=== PATIENT | female | born 2000 | race Caucasian/White ===

== ENCOUNTER 2019-03-04 18:05 | Emergency (ER) | payer OTHER, BC ==
[~2019-03-04] VITALS: Ht 152.4 cm; Wt 51.7 kg
[~2019-03-04 18:05] MED LIST: CEFD300C37 PO; DOCU-131 PO; ETON1VAG VG; IBUP-1222 PO; IRON1TAB60 PO; METR500T PO; NITR100C56 PO; NORG1TAB6 PO; ONDA4TAB13 SL; OXYC-302 PO; birth control
--- NOTE | 2019-03-04 18:30 | NUR ---
PT PRESENTING FOR RIGHT FLANK PAIN AND PAINFUL URINATION, RECENTLY DX WITH UTI ON ABX BUT FEELS SHE IS GETTING WORSE. UA COLLECTED AND SENT TO LAB. FAMILY AT BEDSIDE. CALL LIGHT WITHIN REACH. AWAITING FURTHER ORDERS AT THIS TIME
[2019-03-04] MEDS ORDERED: IBUPROFEN 600 MG TABLET ONE (18:36)
[2019-03-04] MEDS ORDERED: PROMETHAZINE 25 MG/ML, 1ML ONE (18:36)
[2019-03-04] MEDS ORDERED: ONDANSETRON ODT 4 MG ONE (18:36)
[2019-03-04] MEDS ORDERED: HYDROcodone/APAP 5/325 TABLET ONE (18:36)
[2019-03-04 18:50] LABS: BASOPHILS # (AUTO) 0.01 x10^3/uL (0-0.1); BASOPHILS % (AUTO) 0 % (0-1); EOSINOPHILS # (AUTO) 0.08 x10^3/uL (0-0.4); EOSINOPHILS % (AUTO) 1 % (1-7); LYMPHOCYTES # (AUTO) 0.58 x10^3/uL (1-3.4); LYMPHOCYTES % (AUTO) 5 % (22-44); MD NO; MEAN CORPUSCULAR HEMOGLOBIN 34.5 pg (27.0-34.8); MEAN CORPUSCULAR HGB CONC 34.6 g/dL (32.4-35.8); MEAN CORPUSCULAR VOLUME 99.8 fL (80-100); MEAN PLATELET VOLUME 9.9 fL (7.4-10.4); MONOCYTES # (AUTO) 0.22 x10^3/uL (0.2-0.8); MONOCYTES % (AUTO) 2 % (2-9); NEUTROPHILS # (AUTO) 11.59 x10^3/uL (1.8-6.8); NEUTROPHILS % (AUTO) 93 % (42-75); PLATELET COUNT 154 x10^3/uL (130-400); RED BLOOD COUNT 4.59 x10^6/uL (3.82-5.3); RED CELL DISTRIBUTION WIDTH 13.6 % (9.6-15.2)
[2019-03-04 18:57] LABS: MICROSCOPIC AUTO
[2019-03-04 18:58] LABS: CULTURE INDICATED? YES
[2019-03-04] MEDS ORDERED: ONDANSETRON ODT 4 MG PO ONE (19:00)
[2019-03-04] MEDS ORDERED: HYDROcodone/APAP 5/325 TABLET PO ONE (19:00)
[2019-03-04] MEDS ORDERED: PROMETHAZINE 25 MG/ML, 1ML IM ONE (19:00)
[2019-03-04] MEDS ORDERED: IBUPROFEN 600 MG TABLET PO ONE (19:00)
[2019-03-04 19:01] LABS: ALANINE AMINOTRANSFERASE 25 U/L (12-78); ALBUMIN 4.1 g/dL (3.4-5.0); ANION GAP 6 mmol/L (5-15); CALCIUM 8.8 mg/dL (8.5-10.1); CHLORIDE 110 mmol/L (98-107); CREATININE 0.83 mg/dL (0.55-1.02)
[2019-03-04 19:06] LABS: ALKALINE PHOSPHATASE 85 U/L (45-117); BILIRUBIN,TOTAL 0.6 mg/dL (0.2-1.0); TOTAL PROTEIN 7.1 g/dL (6.4-8.2)
[2019-03-04 19:25] VITALS: BP 99/61
--- NOTE | 2019-03-04 19:35 | NUR ---
MD TO BEDSIDE TO RECHECK PT AND UPDATE PT AND FAMILY ON POC. PT TO BE DCd
== END 2019-03-04 19:54 | disposition home or self-care (01) ==
LOC: ED 19:00
DX: N30.00 Acute cystitis without hematuria (principal); Z88.8 Allergy status to other drugs, medicaments and biological substances
CPT/HCPCS: 36415; 80053; 81001; 83690; 84703; 85025; 87086; 96372; 99284; J2550; Q0162

== ENCOUNTER 2019-03-16 21:45 | Emergency (ER) | payer OTHER, BC ==
[~2019-03-16] VITALS: Ht 152.4 cm; Wt 52.9 kg
[2019-03-16 21:55] VITALS: BP 96/56
[2019-03-16 22:28] LABS: BASOPHILS # (AUTO) 0.02 x10^3/uL (0-0.1); BASOPHILS % (AUTO) 0 % (0-1); EOSINOPHILS # (AUTO) 0.17 x10^3/uL (0-0.4); EOSINOPHILS % (AUTO) 2 % (1-7); LYMPHOCYTES # (AUTO) 2.98 x10^3/uL (1-3.4); LYMPHOCYTES % (AUTO) 39 % (22-44); MD NO; MEAN CORPUSCULAR HEMOGLOBIN 34.3 pg (27.0-34.8); MEAN CORPUSCULAR HGB CONC 34.5 g/dL (32.4-35.8); MEAN CORPUSCULAR VOLUME 99.4 fL (80-100); MEAN PLATELET VOLUME 9.1 fL (7.4-10.4); MONOCYTES # (AUTO) 0.43 x10^3/uL (0.2-0.8); MONOCYTES % (AUTO) 6 % (2-9); NEUTROPHILS # (AUTO) 4.02 x10^3/uL (1.8-6.8); NEUTROPHILS % (AUTO) 53 % (42-75); PLATELET COUNT 234 x10^3/uL (130-400); RED BLOOD COUNT 4.48 x10^6/uL (3.82-5.3); RED CELL DISTRIBUTION WIDTH 13.3 % (9.6-15.2)
[2019-03-16 22:41] LABS: ALANINE AMINOTRANSFERASE 27 U/L (12-78); ANION GAP 7 mmol/L (5-15); CALCIUM 8.3 mg/dL (8.5-10.1); CHLORIDE 113 mmol/L (98-107); CREATININE 0.59 mg/dL (0.55-1.02)
[2019-03-16 22:43] LABS: ALKALINE PHOSPHATASE 79 U/L (45-117); BILIRUBIN,TOTAL 0.4 mg/dL (0.2-1.0); TOTAL PROTEIN 7.1 g/dL (6.4-8.2)
--- NOTE | 2019-03-16 22:52 | NUR ---
PT ARAVIND CATHED FOR URINE. URINE WALKED TO LAB.
[2019-03-16 23:10] LABS: HCG UR SG 1.013 (1.003-1.030)
[2019-03-16 23:12] LABS: CULTURE INDICATED? YES; MICROSCOPIC INDICATED
[2019-03-16] MEDS ORDERED: ONDANSETRON ODT 4 MG ONE (23:40)
[2019-03-16] MEDS ORDERED: PHENAZOPYRIDINE 200 MG TABLET ONE (23:40)
[2019-03-16] MEDS ORDERED: CIPROFLOXACIN 500 MG TABLET ONE (23:40)
[2019-03-17] MEDS ORDERED: ONDANSETRON ODT 4 MG PO ONE
[2019-03-17] MEDS ORDERED: CIPROFLOXACIN 500 MG TABLET PO ONE
[2019-03-17] MEDS ORDERED: PHENAZOPYRIDINE 200 MG TABLET PO ONE
== END 2019-03-16 23:59 | disposition home or self-care (01) ==
LOC: ED 23:53
DX: N30.01 Acute cystitis with hematuria (principal); N10 Acute pyelonephritis; F17.200 Nicotine dependence, unspecified, uncomplicated
CPT/HCPCS: 36415; 80053; 81001; 81025; 85025; 87086; 99284; Q0162

== ENCOUNTER 2019-06-06 19:34 | Emergency (ER) | payer OTHER, BC ==
[~2019-06-06] VITALS: Ht 152.4 cm; Wt 50.3 kg
[2019-06-06 19:37] VITALS: BP 111/75
== END 2019-06-06 21:48 | disposition home or self-care (01) ==
LOC: ED 21:33
DX: B34.9 Viral infection, unspecified (principal); J00 Acute nasopharyngitis [common cold]; R19.7 Diarrhea, unspecified; R11.2 Nausea with vomiting, unspecified; Z90.89 Acquired absence of other organs
CPT/HCPCS: 36415; 71045; 80053; 84703; 85025; 99284

== ENCOUNTER 2019-06-17 00:07 | Emergency (ER) | payer OTHER, BC ==
[~2019-06-17] VITALS: Ht 152.4 cm; Wt 50.2 kg
[2019-06-17 00:09] VITALS: BP 107/74
--- NOTE | 2019-06-17 00:43 | NUR ---
FIRST CONTACT WITH PT. PT STATES THAT SHE WAS SEEN HERE A WEEK AGO AND DIAGNOSED WITH VIRAL RESP INFECTION, STATES THAT SHE HAS NOT GOTTEN BETTER. PT'S AOX4. RESPS EVEN AND UNLABORED.
[2019-06-17] MEDS ORDERED: DEXAMETHASONE 4 MG TABLET ONE (00:47)
--- NOTE | 2019-06-17 00:50 | NUR ---
PT MEDICATED PER EMAR. PT TOLERATED WELL.
[2019-06-17] MEDS ORDERED: DEXAMETHASONE 4 MG TABLET PO ONE (01:00)
[2019-06-17 01:11] LABS: CULTURE INDICATED? YES; MICROSCOPIC INDICATED
--- NOTE | 2019-06-17 02:15 | NUR ---
Patient given discharge instructions and they have confirmed that they understand the instructions. Patient ambulatory with steady gait.
== END 2019-06-17 02:16 | disposition home or self-care (01) ==
LOC: ED 00:26
DX: N30.00 Acute cystitis without hematuria (principal); J02.9 Acute pharyngitis, unspecified; F17.210 Nicotine dependence, cigarettes, uncomplicated
CPT/HCPCS: 71046; 81001; 81025; 87081; 87086; 87880; 99284

== ENCOUNTER 2019-06-29 11:31 | Emergency (ER) | payer OTHER, BC ==
[~2019-06-29] VITALS: Ht 152.4 cm; Wt 48.6 kg
[2019-06-29 15:02] VITALS: BP 104/77
== END 2019-06-29 16:11 | disposition home or self-care (01) ==
LOC: ED 15:12
DX: R09.1 Pleurisy (principal); J20.8 Acute bronchitis due to other specified organisms; B97.89 Other viral agents as the cause of diseases classified elsewhere
CPT/HCPCS: 36415; 71045; 71275; 80048; 82040; 85025; 93005; 96374; 99284; J1885; Q9967

== ENCOUNTER 2019-09-08 16:54 | Emergency (ER) | payer OTHER, BC ==
[~2019-09-08] VITALS: Ht 162.6 cm; Wt 50.5 kg
--- NOTE | 2019-09-08 17:12 | NUR ---
THIS IS A 19 YO FEMALE COMING IN FOR CRAMPING AND VAGINAL BLEEDING SINCE LAST NIGHT AND VAGINAL DISCHARGE X1 WEEK. PT TOOK A TEST LAST NIGHT THAT WAS POSITIVE. PATIENT STATES LMP WAS APPROXIMATELY TWO MONTHS AGO. PATIENT HAS HX OF HEMORRHAGIC CYSTS. PATIENT PLACED ON CONTINUOUS SPO2 AT 98%, CYCLE BP Q1HR, CALL LIGHT IN REACH. PATIENT DENIES FURTHER NEEDS AT THIS TIME.
--- NOTE | 2019-09-08 17:30 | NUR ---
PT IN US.
--- NOTE | 2019-09-08 17:53 | NUR ---
PT BACK FROM US, PLACED BACK ON CONTINUOUS SPO2AT 98%, CYCLE BP Q1HR. NEEDS ADDRESSED.
[2019-09-08 18:22] LABS: BASOPHILS # (AUTO) 0.02 x10^3/uL (0-0.1); BASOPHILS % (AUTO) 0 % (0-1); EOSINOPHILS # (AUTO) 0.15 x10^3/uL (0-0.4); EOSINOPHILS % (AUTO) 2 % (1-7); LYMPHOCYTES # (AUTO) 2.02 x10^3/uL (1-3.4); LYMPHOCYTES % (AUTO) 23 % (22-44); MD NO; MEAN CORPUSCULAR HEMOGLOBIN 34.6 pg (27.0-34.8); MEAN CORPUSCULAR HGB CONC 33.2 g/dL (32.4-35.8); MEAN CORPUSCULAR VOLUME 104.2 fL (80-100); MEAN PLATELET VOLUME 9.3 fL (7.4-10.4); MONOCYTES # (AUTO) 0.69 x10^3/uL (0.2-0.8); MONOCYTES % (AUTO) 8 % (2-9); NEUTROPHILS # (AUTO) 6.11 x10^3/uL (1.8-6.8); NEUTROPHILS % (AUTO) 68 % (42-75); PLATELET COUNT 212 x10^3/uL (130-400); RED BLOOD COUNT 4.17 x10^6/uL (3.82-5.3)
[2019-09-08 18:27] LABS: ALBUMIN 3.5 g/dL (3.4-5.0); ANION GAP 4 mmol/L (5-15); CALCIUM 8.7 mg/dL (8.5-10.1); CHLORIDE 108 mmol/L (98-107)
--- NOTE | 2019-09-08 18:41 | NUR ---
REPORT GIVEN TO MARIEL ROJAS. PLAN OF CARE DISCUSSED.
--- NOTE | 2019-09-08 18:45 | NUR ---
PT SITTING UP ON GURNEY TALKING TO FAMILY, DENIES C/O PAIN OR BLEEDING AT THIS TIME. PT AND FAMILY ASKING ABOUT FINAL TEST RESULTS. AWARE WAITING FOR CHART REVIEW BY ERP. PT DENIED FURTHER QUESTIONS/CONCERNS AT THIS TIME.
[2019-09-08 18:46] LABS: CREATININE 0.61 mg/dL (0.55-1.02)
[2019-09-08 19:18] VITALS: BP 91/62
--- NOTE | 2019-09-08 19:26 | NUR ---
CONSENT FOR [employer] SIGNED BY ERP AND PT, PLACED ON CHART. REVIEWED MONITORING PRECAUTIONS W/ [employer] W/ PT AND FAMILY MEMBER. [facility] ADMINISTERED IN RIGHT BUTTOCK AFTER VERIFYING W/ SECOND RN.
--- NOTE | 2019-09-08 19:52 | NUR ---
PT RESTING QUIETLY AT THIS TIME, DENIES ANY C/O PAIN.
[2019-09-08 20:08] VITALS: BP 97/58
== END 2019-09-08 20:16 | disposition home or self-care (01) ==
LOC: ED 18:10
DX: O20.0 Threatened abortion (principal); Z90.49 Acquired absence of other specified parts of digestive tract; F17.200 Nicotine dependence, unspecified, uncomplicated
CPT/HCPCS: 36415; 76801; 80048; 82040; 84702; 85025; 86850; 86900; 96372; 99284; J2790

== ENCOUNTER 2019-10-31 02:44 | Emergency (ER) | payer OTHER, BC ==
[~2019-10-31] VITALS: Ht 160 cm; Wt 52.3 kg
[2019-10-31 02:47] VITALS: BP 103/57
[2019-10-31] MEDS ORDERED: ACETAMINOPHEN 325 MG TABLET ONE (03:08)
[2019-10-31 03:09] LABS: HCG UR SG 1.014 (1.003-1.030)
[2019-10-31] MEDS ORDERED: ONDANSETRON ODT 4 MG ONE (03:09)
[2019-10-31 03:13] LABS: CULTURE INDICATED? YES; MICROSCOPIC INDICATED
[2019-10-31] MEDS ORDERED: ACETAMINOPHEN 325 MG TABLET PO ONE (03:30)
[2019-10-31] MEDS ORDERED: ONDANSETRON ODT 4 MG PO ONE (03:30)
== END 2019-10-31 03:45 | disposition home or self-care (01) ==
LOC: ED 03:40
DX: N30.00 Acute cystitis without hematuria (principal); R11.2 Nausea with vomiting, unspecified; Z90.89 Acquired absence of other organs
CPT/HCPCS: 81001; 81025; 87077; 87086; 99283; Q0162

== ENCOUNTER 2019-11-12 00:20 | Emergency (ER) | payer OTHER, BC ==
[~2019-11-12] VITALS: Ht 152.4 cm; Wt 53.0 kg
[2019-11-12 00:27] VITALS: BP 104/67
--- NOTE | 2019-11-12 00:51 | NUR ---
Patient ambulated steadily to room, changed into hospital gown then ambulated to bathroom to obtain urine sample. Midlevel provider to bedside, patient answering questions clearly and concisely. RN followed behind after orders placed. Orders placed for urine sample, collected by RN and hand walked sample to laboratory. Awaiting results.
[2019-11-12 01:03] LABS: CULTURE INDICATED? YES; MICROSCOPIC INDICATED
[2019-11-12] MEDS ORDERED: CEFDINIR 300 MG CAPSULE ONE (01:21)
--- NOTE | 2019-11-12 01:25 | NUR ---
L&D RN AT BEDSIDE FOR HEART TONES. BABY HR [id number]
[2019-11-12] MEDS ORDERED: CEFDINIR 300 MG CAPSULE PO ONE (01:30)
== END 2019-11-12 01:41 | disposition home or self-care (01) ==
LOC: ED 00:49
DX: O23.41 Unspecified infection of urinary tract in pregnancy, first trimester (principal); O99.511 Diseases of the respiratory system complicating pregnancy, first trimester; Z3A.14 14 weeks gestation of pregnancy
CPT/HCPCS: 81001; 87077; 87086; 87491; 87591; 99283

== ENCOUNTER 2019-11-16 01:06 | Emergency (ER) | payer OTHER, BC ==
[~2019-11-16] VITALS: Ht 152.4 cm; Wt 54.0 kg
--- NOTE | 2019-11-16 01:42 | NUR ---
THIS IS A 19Y F THAT COMES IN TONIGHT W/ C/O WORSENING KIDNEY INFECTION. PT STS SHE WAS SEEN HERE ABOUT A WEEK AGO AND GOT DX W/ KIDNEY INFECTION SHE HAS BEEN TAKING ABX BUT STILL HAS FEVER CHILLS AND WORSENING PAIN AND NAUSEA. PT IS 14WKS . PT CONNECTED TO MONITORING, VSS, NADN, CALL LIGHT IN REACH. MOTHER AT BEDSIDE
--- NOTE | 2019-11-16 01:53 | NUR ---
PT TO US AT THIS TIME
[2019-11-16 01:58] LABS: BASOPHILS # (AUTO) 0.01 x10^3/uL (0-0.1); BASOPHILS % (AUTO) 0 % (0-1); EOSINOPHILS # (AUTO) 0.02 x10^3/uL (0-0.4); EOSINOPHILS % (AUTO) 0 % (1-7); LYMPHOCYTES # (AUTO) 0.46 x10^3/uL (1-3.4); LYMPHOCYTES % (AUTO) 7 % (22-44); MD NO; MEAN CORPUSCULAR HEMOGLOBIN 33.9 pg (27.0-34.8); MEAN CORPUSCULAR HGB CONC 34.2 g/dL (32.4-35.8); MEAN CORPUSCULAR VOLUME 98.9 fL (80-100); MEAN PLATELET VOLUME 8.9 fL (7.4-10.4); MONOCYTES # (AUTO) 0.61 x10^3/uL (0.2-0.8); MONOCYTES % (AUTO) 9 % (2-9); NEUTROPHILS # (AUTO) 5.76 x10^3/uL (1.8-6.8); NEUTROPHILS % (AUTO) 84 % (42-75); PLATELET COUNT 173 x10^3/uL (130-400); RED CELL DISTRIBUTION WIDTH 12.8 % (9.6-15.2)
[2019-11-16] MEDS ORDERED: SODIUM CHLORIDE 0.9% 1,000ML IVBOLUS ONE (02:00)
[2019-11-16] MEDS ORDERED: SODIUM CHLORIDE FLUSH 10ML SYR IVF ONE (02:00)
[2019-11-16 02:10] LABS: ALANINE AMINOTRANSFERASE 19 U/L (12-78); ANION GAP 7 mmol/L (5-15); CALCIUM 8.2 mg/dL (8.5-10.1); CHLORIDE 106 mmol/L (98-107); CREATININE 0.53 mg/dL (0.55-1.02)
[2019-11-16 02:12] LABS: ALKALINE PHOSPHATASE 66 U/L (45-117); BILIRUBIN,TOTAL 0.2 mg/dL (0.2-1.0); TOTAL PROTEIN 6.6 g/dL (6.4-8.2)
--- NOTE | 2019-11-16 02:26 | NUR ---
PT BACK FROM US, IV STARTED, URINE SENT TO LAB, PT CONNECTED TO MONITORING, MOTHER REMAINS AT BEDSIDE
[2019-11-16 03:26] VITALS: BP 98/55
--- NOTE | 2019-11-16 03:27 | NUR ---
PT RESTING ON GURNEY LIGHTS DIMMED. KASSY LY
[2019-11-16] MEDS ORDERED: ACETAMINOPHEN 325 MG TABLET ONE (03:37)
--- NOTE | 2019-11-16 03:39 | NUR ---
PT MEDICATED PER MAR FOR PEÑA
[2019-11-16 03:43] LABS: MICROSCOPIC INDICATED
--- NOTE | 2019-11-16 03:44 | NUR ---
LAB CALLED TO FOLLOW UP ON URINE
[2019-11-16 03:47] LABS: CULTURE INDICATED? NO
--- NOTE | 2019-11-16 03:58 | NUR ---
ALL RESULTS BACK AT THIS TIME CHART UP FOR RECHECK
[2019-11-16] MEDS ORDERED: ACETAMINOPHEN 325 MG TABLET PO ONE (04:00)
== END 2019-11-16 04:32 | disposition home or self-care (01) ==
LOC: ED 01:32
DX: O26.892 Other specified pregnancy related conditions, second trimester (principal); O21.9 Vomiting of pregnancy, unspecified; R50.9 Fever, unspecified; R10.2 Pelvic and perineal pain; F17.200 Nicotine dependence, unspecified, uncomplicated; Z3A.14 14 weeks gestation of pregnancy; Z90.49 Acquired absence of other specified parts of digestive tract
CPT/HCPCS: 36415; 76815; 80053; 81001; 85025; 96360; 99284; J7030

== ENCOUNTER 2020-01-09 23:42 | Outpatient (CLI) | payer BC, OTHER ==
[~2020-01-09] VITALS: Ht 152.4 cm; Wt 54.4 kg
[2020-01-10 00:19] VITALS: BP 110/66
[2020-01-10 00:37] LABS: MICROSCOPIC AUTO
[2020-01-10 00:44] LABS: AMPHETAMINE SCREEN, URINE Negative (Negative); BARBITURATE SCREEN, URINE Negative (Negative); BENZODIAZEPINE SCREEN, URINE Negative (Negative); CANNABINOID SCREEN, URINE Positive (Negative); COCAINE SCREEN, URINE Negative (Negative); METHADONE SCREEN, URINE Negative (Negative); OPIATE SCREEN, URINE Negative (Negative)
== END 2020-01-10 01:08 | disposition home or self-care (01) ==
LOC: LDOP 23:42
PROVIDERS: ATTEND Obstetrics & Gynecology
DX: O46.92 Antepartum hemorrhage, unspecified, second trimester (principal); Z3A.22 22 weeks gestation of pregnancy
CPT/HCPCS: 80307; 81001; 87086; 87491; 87591; 99211; G0463

== ENCOUNTER 2020-01-27 18:22 | Emergency (ER) | payer BC ==
[~2020-01-27] VITALS: Ht 152.4 cm; Wt 59.8 kg
[2020-01-27 18:39] VITALS: BP 109/65
[2020-01-27 20:16] LABS: CULTURE INDICATED? YES; MICROSCOPIC INDICATED
== END 2020-01-27 21:18 | disposition home or self-care (01) ==
LOC: ED 21:00
DX: O23.12 Infections of bladder in pregnancy, second trimester (principal); F17.200 Nicotine dependence, unspecified, uncomplicated; Z90.89 Acquired absence of other organs; Z3A.23 23 weeks gestation of pregnancy
CPT/HCPCS: 81001; 87086; 99283

== ENCOUNTER 2020-01-31 14:11 | Observation (INO) | payer BC ==
[~2020-01-31] VITALS: Ht 152.4 cm; Wt 59.1 kg
[2020-01-31 14:50] VITALS: BP 110/65
[2020-01-31] MEDS ORDERED: NITR100C56 PO (15:05)
[2020-01-31] MEDS ORDERED: PREN1TAB60 PO (15:05)
[2020-01-31 15:11] LABS: AMPHETAMINE SCREEN, URINE Negative (Negative); BARBITURATE SCREEN, URINE Negative (Negative); BENZODIAZEPINE SCREEN, URINE Negative (Negative); CANNABINOID SCREEN, URINE Positive (Negative); COCAINE SCREEN, URINE Negative (Negative); METHADONE SCREEN, URINE Negative (Negative); OPIATE SCREEN, URINE Negative (Negative)
[2020-01-31 18:12] VITALS: BP 96/62
== END 2020-01-31 18:37 | disposition home or self-care (01) ==
LOC: LDOP 14:11 → UNDOADMOB 16:00 → LDIP 16:00
PROVIDERS: ADMIT Obstetrics & Gynecology; ATTEND Obstetrics & Gynecology
DX: O26.892 Other specified pregnancy related conditions, second trimester (principal); R10.9 Unspecified abdominal pain; Z3A.25 25 weeks gestation of pregnancy; Z79.899 Other long term (current) drug therapy
CPT/HCPCS: 36415; 76819; 80307; 85460; 86850; 86900; 99201; G0378; J2790; 96372; G0463

== ENCOUNTER 2020-02-29 21:54 | Outpatient (CLI) | payer BC ==
[~2020-02-29] VITALS: Ht 157.5 cm; Wt 63.6 kg
[~2020-02-29 21:54] MED LIST changes: +PREN1TAB60 PO
[2020-02-29 22:27] LABS: MICROSCOPIC AUTO
[2020-02-29 22:37] LABS: AMPHETAMINE SCREEN, URINE Negative (Negative); BARBITURATE SCREEN, URINE Negative (Negative); BENZODIAZEPINE SCREEN, URINE Negative (Negative); CANNABINOID SCREEN, URINE Negative (Negative); COCAINE SCREEN, URINE Negative (Negative); METHADONE SCREEN, URINE Negative (Negative); OPIATE SCREEN, URINE Negative (Negative)
== END 2020-02-29 23:37 | disposition home or self-care (01) ==
LOC: LDOP 21:54
PROVIDERS: ATTEND Obstetrics & Gynecology
DX: O23.43 Unspecified infection of urinary tract in pregnancy, third trimester (principal); O26.893 Other specified pregnancy related conditions, third trimester; R10.9 Unspecified abdominal pain; Z3A.29 29 weeks gestation of pregnancy
CPT/HCPCS: 59025; 80307; 81001; 87077; 87086; 99211; G0463

== ENCOUNTER 2020-04-12 19:33 | Outpatient (CLI) | payer BC ==
[2020-04-12 20:12] LABS: MICROSCOPIC INDICATED
[2020-04-12 20:17] LABS: AMPHETAMINE SCREEN, URINE Negative (Negative); BARBITURATE SCREEN, URINE Negative (Negative); BENZODIAZEPINE SCREEN, URINE Negative (Negative); CANNABINOID SCREEN, URINE Negative (Negative); COCAINE SCREEN, URINE Negative (Negative); METHADONE SCREEN, URINE Negative (Negative); OPIATE SCREEN, URINE Negative (Negative)
== END 2020-04-12 20:56 | disposition home or self-care (01) ==
LOC: LDOP 19:33
PROVIDERS: ATTEND Obstetrics & Gynecology
DX: O42.913 Preterm premature rupture of membranes, unspecified as to length of time between rupture and onset of labor, third trimester (principal); Z3A.35 35 weeks gestation of pregnancy
CPT/HCPCS: 59025; 80307; 81001; 84112; 87086; 99211; G0463

== ENCOUNTER 2020-05-07 08:00 | Outpatient (CLI) | payer BC, OTHER | END 2020-05-07 23:59 | disposition home or self-care (01) | LOC: LAB 08:00 → SMMGNW 14:10 → LAB 23:59 → EDSTATUS 05-08 14:50 → SMMGNW 05-09 14:19 | PROVIDERS: ATTEND Anesthesiology | DX: Z11.59 Encounter for screening for other viral diseases (principal) | CPT/HCPCS: 36415; 87635 ==

== ENCOUNTER 2020-05-11 21:07 | Emergency (ER) | payer OTHER, BC ==
[~2020-05-11] VITALS: Ht 152.4 cm; Wt 73.8 kg
[2020-05-11 21:26] VITALS: BP 108/75
--- NOTE | 2020-05-11 23:19 | NUR ---
KAY X1 @[id number]
--- NOTE | 2020-05-11 23:34 | NUR ---
NIL X 2
== END 2020-05-11 23:42 | disposition left against medical advice (07) ==
LOC: ED 23:35
DX: M79.89 Other specified soft tissue disorders (principal); Z72.9 Problem related to lifestyle, unspecified

== ENCOUNTER 2020-05-14 04:26 | Inpatient (IN) | payer OTHER, BC ==
[~2020-05-14] VITALS: Ht 152.4 cm; Wt 72.0 kg
[2020-05-14] MEDS ORDERED: NEWBORN KIT ONE ×2 (04:45→05:36)
[2020-05-14] MEDS ORDERED: LIDOCAINE 1%, 20ML ONE (05:36)
[2020-05-14] MEDS ORDERED: MISOPROSTOL 200 MCG TABLET ONE (05:36)
[2020-05-14] MEDS ORDERED: OXYTOCIN 30U/ 0.9% NaCL 500ML 500 ML ONE (05:37)
[2020-05-14] MEDS ORDERED: OXYTOCIN 30U/ 0.9% NaCL 500ML 500 ML IV ONE (05:49)
[2020-05-14] MEDS ORDERED: D5%-LACTATED RINGERS 1,000 ML IV SCH (05:49)
[2020-05-14] MEDS ORDERED: OXYTOCIN 30U/ 0.9% NaCL 500ML 500 ML IV PRN (05:49)
[2020-05-14] MEDS ORDERED: FENTANYL/BUPIV./NS/PF 250 ML EPIDCONT SCH ×2 (05:52→11:44)
[2020-05-14] MEDS ORDERED: SODIUM CHLORIDE FLUSH 10ML SYR IVF PRN (06:00)
[2020-05-14] MEDS ORDERED: SODIUM CITRATE/CITRIC ACID 30 ML UDC PO PRN (06:00)
[2020-05-14] MEDS ORDERED: FENTANYL PF 100 MCG/2ML IVPush PRN (06:00)
[2020-05-14] MEDS ORDERED: TERBUTALINE 1 MG/ML, 1ML SQ PRN (06:00)
[2020-05-14] MEDS ORDERED: TERBUTALINE 1 MG/ML, 1ML IVPush PRN (06:00)
[2020-05-14] MEDS ORDERED: ALUMINUM/MAG/SIMETHICONE 30 ML UDC PO PRN (06:00)
[2020-05-14 06:30] LABS: MEAN CORPUSCULAR HEMOGLOBIN 34.2 pg (27.0-34.8); MEAN CORPUSCULAR HGB CONC 33.5 g/dL (32.4-35.8); MEAN CORPUSCULAR VOLUME 101.9 fL (80-100); MEAN PLATELET VOLUME 10.5 fL (7.4-10.4); PLATELET COUNT 191 x10^3/uL (130-400); RED BLOOD COUNT 3.05 x10^6/uL (3.82-5.3); RED CELL DISTRIBUTION WIDTH 13.7 % (9.6-15.2)
[2020-05-14] MEDS ORDERED: PLEASE ENTER HEIGHT AND WEIGHT MC SCH (06:30)
[2020-05-14 06:44] LABS: AMPHETAMINE SCREEN, URINE Negative (Negative); BARBITURATE SCREEN, URINE Negative (Negative); BENZODIAZEPINE SCREEN, URINE Negative (Negative); CANNABINOID SCREEN, URINE Negative (Negative); COCAINE SCREEN, URINE Negative (Negative); METHADONE SCREEN, URINE Negative (Negative); OPIATE SCREEN, URINE Negative (Negative)
[2020-05-14 07:01] LABS: BASOPHILS # (AUTO) 0.05 x10^3/uL (0-0.1); BASOPHILS % (AUTO) 0 % (0-1); EOSINOPHILS # (AUTO) 0.42 x10^3/uL (0-0.4); EOSINOPHILS % (AUTO) 3 % (1-7); LYMPHOCYTES # (AUTO) 2.32 x10^3/uL (1-3.4); LYMPHOCYTES % (AUTO) 16 % (22-44); MD SCAN; MONOCYTES # (AUTO) 1.07 x10^3/uL (0.2-0.8); MONOCYTES % (AUTO) 7 % (2-9); NEUTROPHILS # (AUTO) 11.01 x10^3/uL (1.8-6.8); NEUTROPHILS % (AUTO) 74 % (42-75)
[2020-05-14 07:26] LABS: MICROSCOPIC INDICATED
[2020-05-14] MEDS ORDERED: NICOTINE 21 MG/24 HR PATCH.TD24 TD ONE (08:00)
[2020-05-14] MEDS ORDERED: FENTANYL/BUPIV./NS/PF 250 ML EPIDCONT ONE ×2 (10:02→11:10)
[2020-05-14] MEDS: LACTATED RINGERS 1,000 ML IVBOLUS PRN ×2 (10:41→15:11)
[2020-05-14] MEDS ORDERED: FENTANYL PF 100 MCG/2ML ONE (11:03)
[2020-05-14] MEDS ORDERED: BUPIVACAINE 0.25% ONE (11:03)
[2020-05-14] MEDS ORDERED: LIDOCAINE/PF 1.5%-EPI 1:200K, 30ML ONE (11:10)
[2020-05-14] MEDS: LACTATED RINGERS 1,000 ML IV SCH ×2 (11:42→16:38)
[2020-05-14] MEDS ORDERED: LACTATED RINGERS 1,000 ML IV SCH (11:44)
[2020-05-14] MEDS ORDERED: ONDANSETRON 2MG/ML, 2ML IVPush PRN (12:00)
[2020-05-14] MEDS ORDERED: EPHEDRINE 50 MG/ML, 1ML IVPush PRN (12:00)
[2020-05-14] MEDS ORDERED: LACTATED RINGERS 1,000 ML INTUTE SCH (17:00)
[2020-05-14] MEDS ORDERED: LACTATED RINGERS 1,000 ML INTUTE PRN (17:00)
[2020-05-14] MEDS ORDERED: CALCIUM CARBONATE 500 MG TAB.CHEW ONE ×2 (17:04→18:48)
[2020-05-14] MEDS: CALCIUM CARBONATE 500 MG TAB.CHEW PO PRN ×2 (17:05→18:50)
[2020-05-14] MEDS ORDERED: ONDANSETRON 2MG/ML, 2ML ONE (19:46)
[2020-05-14] MEDS: ONDANSETRON 2MG/ML, 2ML IVPush PRN ×2 (19:51→19:53)
[2020-05-15] MEDS: OXYTOCIN 30U/ 0.9% NaCL 500ML 500 ML IV SCH ×2 (04:26→14:26)
[2020-05-15] MEDS ORDERED: MISOPROSTOL 200 MCG TABLET PR PRN (04:30)
[2020-05-15] MEDS ORDERED: ONDANSETRON 2MG/ML, 2ML IV PRN (04:30)
[2020-05-15] MEDS ORDERED: TRANEXAMIC ACID 100 MG/ML, 10ML IV ONE (04:30)
[2020-05-15] MEDS ORDERED: BISACODYL 10 MG SUPP PR PRN (04:30)
[2020-05-15] MEDS ORDERED: OXYcodone/APAP 5/325MG TABLET PO PRN (04:30)
[2020-05-15] MEDS ORDERED: METOCLOPRAMIDE 5 MG/ML, 2ML IV ONE (04:30)
[2020-05-15] MEDS ORDERED: ACETAMINOPHEN 325 MG TABLET PO PRN (04:30)
[2020-05-15] MEDS ORDERED: FENTANYL PF 100 MCG/2ML ONE (04:33)
[2020-05-15] MEDS ORDERED: WATER-INJECTION,STERILE 10 ML IV ONE (05:19)
[2020-05-15] MEDS ORDERED: CEFAZOLIN 1,000 MG ONE (05:19)
[2020-05-15] MEDS ORDERED: EPHEDRINE 50 MG/ML, 1ML ONE (05:19)
[2020-05-15] MEDS ORDERED: OXYTOCIN 10 UNITS/ML, 1ML ONE (05:19)
[2020-05-15] MEDS ORDERED: BUPIVACAINE/PF 0.25% ONE (05:19)
[2020-05-15] MEDS ORDERED: MEPERIDINE/PF 50 MG/ML ONE (05:19)
[2020-05-15] MEDS ORDERED: PHENYLEPHRINE 10 MG/ML ONE (05:19)
[2020-05-15] MEDS ORDERED: LIDOCAINE-MPF 2% ,5ML ONE (05:19)
[2020-05-15] MEDS ORDERED: morphine SULFATE/PF 0.5 MG/ML, 10ML ONE (05:31)
[2020-05-15] MEDS ORDERED: ONDANSETRON 2MG/ML, 2ML ONE (05:37)
[2020-05-15] MEDS ORDERED: PROPOFOL 10 MG/ML, 20ML ONE (05:37)
[2020-05-15] MEDS ORDERED: BUPIVACAINE 0.25% ONE ×2 (05:56)
[2020-05-15] MEDS: KETOROLAC 30 MG/1 ML IV SCH ×3 (06:00→18:34)
[2020-05-15] MEDS ORDERED: OXYcodone 5 MG/5 ML ORAL.SOL UDC ONE ×2 (06:20→06:21)
[2020-05-15] MEDS ORDERED: FENTANYL PF 100 MCG/2ML IV PRN (06:30)
[2020-05-15] MEDS ORDERED: OXYcodone 5 MG/5 ML ORAL.SOL UDC PO PRN (06:30)
[2020-05-15] MEDS ORDERED: KETOROLAC 30 MG/1 ML IVPush PRN (06:30)
[2020-05-15] MEDS ORDERED: HYDROmorphone 1 MG/ML, 1ML INJ IVPush PRN (06:30)
[2020-05-15] MEDS ORDERED: ONDANSETRON 2MG/ML, 2ML IVPush PRN (06:30)
[2020-05-15 08:15] VITALS: BP_SYST 122; BP_SYST 124; BP_DIAS 78; BP_DIAS 87
[2020-05-15] MEDS: PRENATAL VIT/IRON/FA 1 EACH TABLET PO SCH (09:00)
[2020-05-15] MEDS ORDERED: MORPHINE SULFATE 4 MG/ML, 1ML IVPush PRN (09:30)
[2020-05-15] MEDS ORDERED: morphine SULFATE 10 MG/ML, 1ML IV PRN (09:30)
[2020-05-15] MEDS: OXYcodone/APAP 5/325MG TABLET PO PRN ×3 (11:24→20:24)
[2020-05-15 12:45] VITALS: BP 105/70
[2020-05-15 13:33] LABS: MEAN CORPUSCULAR HGB CONC 33.8 g/dL (32.4-35.8); MEAN CORPUSCULAR VOLUME 100.4 fL (80-100); MEAN PLATELET VOLUME 10.8 fL (7.4-10.4); PLATELET COUNT 149 x10^3/uL (130-400); RED BLOOD COUNT 2.77 x10^6/uL (3.82-5.3); RED CELL DISTRIBUTION WIDTH 13.6 % (9.6-15.2)
[2020-05-15 13:56] LABS: BASOPHILS # (AUTO) 0.01 x10^3/uL (0-0.1); BASOPHILS % (AUTO) 0 % (0-1); EOSINOPHILS # (AUTO) 0.04 x10^3/uL (0-0.4); EOSINOPHILS % (AUTO) 0 % (1-7); LYMPHOCYTES # (AUTO) 1.47 x10^3/uL (1-3.4); LYMPHOCYTES % (AUTO) 9 % (22-44); MD SCAN; MONOCYTES # (AUTO) 0.82 x10^3/uL (0.2-0.8); MONOCYTES % (AUTO) 5 % (2-9); NEUTROPHILS # (AUTO) 13.58 x10^3/uL (1.8-6.8); NEUTROPHILS % (AUTO) 85 % (42-75)
[2020-05-15 17:30] VITALS: BP 109/73
[2020-05-15] MEDS: DOCUSATE 100 MG CAPSULE PO PRN (20:23)
[2020-05-15 21:00] VITALS: BP 110/73
[2020-05-15] MEDS: NICOTINE 21 MG/24 HR PATCH.TD24 TD SCH (22:41)
[2020-05-16] MEDS: OXYTOCIN 30U/ 0.9% NaCL 500ML 500 ML IV SCH ×3 (00:26→20:26)
[2020-05-16] MEDS: KETOROLAC 30 MG/1 ML IV SCH ×5 (00:29→18:30)
[2020-05-16] MEDS: OXYcodone/APAP 5/325MG TABLET PO PRN ×6 (00:30→21:27)
[2020-05-16 00:40] VITALS: BP 102/71
[2020-05-16] MEDS: SIMETHICONE 80 MG CHEW TAB PO PRN ×2 (00:44→17:24)
[2020-05-16 07:04] VITALS: BP 108/75
[2020-05-16] MEDS: DOCUSATE 100 MG CAPSULE PO PRN ×2 (09:01→21:26)
[2020-05-16] MEDS: PRENATAL VIT/IRON/FA 1 EACH TABLET PO SCH (09:01)
[2020-05-16] MEDS: NICOTINE 21 MG/24 HR PATCH.TD24 TD SCH (09:02)
[2020-05-16] MEDS: IBUPROFEN 600 MG TABLET PO PRN ×2 (13:36→21:26)
[2020-05-16] MEDS ORDERED: DIPH,PERTUSS(ACELL),TET VAC/PF NC IM-VACC ONE (16:00)
[2020-05-16] MEDS: FERROUS SULFATE 325 MG TABLET PO SCH (17:23)
[2020-05-16 20:00] VITALS: BP 107/71
[2020-05-17] MEDS: OXYcodone/APAP 5/325MG TABLET PO PRN ×3 (02:25→11:13)
[2020-05-17] MEDS: OXYTOCIN 30U/ 0.9% NaCL 500ML 500 ML IV SCH (06:26)
[2020-05-17] MEDS: IBUPROFEN 600 MG TABLET PO PRN (06:31)
[2020-05-17] MEDS: SIMETHICONE 80 MG CHEW TAB PO PRN (07:56)
[2020-05-17] MEDS: FERROUS SULFATE 325 MG TABLET PO SCH (07:56)
[2020-05-17] MEDS: DOCUSATE 100 MG CAPSULE PO PRN (07:56)
[2020-05-17] MEDS: NICOTINE 21 MG/24 HR PATCH.TD24 TD SCH (07:57)
[2020-05-17 08:00] VITALS: BP 107/72
[2020-05-17] MEDS: PRENATAL VIT/IRON/FA 1 EACH TABLET PO SCH (09:00)
[2020-05-17] MEDS ORDERED: IBUP-1222 PO (09:12)
[2020-05-17] MEDS ORDERED: OXYC-302 PO (09:12)
[2020-05-17] MEDS ORDERED: FERR324T5 PO (09:12)
[2020-05-17] MEDS ORDERED: DOCU-131 PO (09:13)
== END 2020-05-17 11:15 | disposition home or self-care (01) | DRG 787 ==
LOC: LDIP 04:26 → 2NW 05-15 08:01
PROVIDERS: ADMIT Obstetrics & Gynecology; ATTEND Obstetrics & Gynecology
PROC: 10D00Z1 Extraction of Products of Conception, Low, Open Approach (ICD-10-PCS; principal; 2020-05-15)
PROC: 3E0R3BZ Introduction of Anesthetic Agent into Spinal Canal, Percutaneous Approach (ICD-10-PCS; 2020-05-15)
PROC: 00HU33Z Insertion of Infusion Device into Spinal Canal, Percutaneous Approach (ICD-10-PCS; 2020-05-15)
DX: O32.3XX0 Maternal care for face, brow and chin presentation, not applicable or unspecified (principal); O99.324 Drug use complicating childbirth; O62.0 Primary inadequate contractions; O69.81X0 Labor and delivery complicated by cord around neck, without compression, not applicable or unspecified; F12.90 Cannabis use, unspecified, uncomplicated; O99.334 Smoking (tobacco) complicating childbirth; F17.200 Nicotine dependence, unspecified, uncomplicated; O76 Abnormality in fetal heart rate and rhythm complicating labor and delivery; O90.81 Anemia of the puerperium; D64.9 Anemia, unspecified; Z37.0 Single live birth; Z67.91 Unspecified blood type, Rh negative; Z90.49 Acquired absence of other specified parts of digestive tract; Z3A.40 40 weeks gestation of pregnancy
CPT/HCPCS: 36415; J3490; J7121; 80307; 81001; 82803; 85025; 86592; 86850; 86900; 88307; 90715; G0378; J0690; J1170; J1885; J2175; J2274; J2405; J2704; J3010; J2370; J2590; J2765; J7120

== ENCOUNTER 2020-07-26 18:55 | Emergency (ER) | payer BC, MEDICAID ==
[~2020-07-26] VITALS: Ht 152.4 cm; Wt 62.1 kg
[~2020-07-26 18:55] MED LIST changes: +FERR324T5 PO
[2020-07-26 19:02] VITALS: BP 101/73
[2020-07-26 19:41] LABS: HCG UR SG 1.033 (1.003-1.030)
[2020-07-26 19:45] LABS: MICROSCOPIC INDICATED
[2020-07-26] MEDS ORDERED: CEFTRIAXONE 250 MG ONE (20:08)
[2020-07-26] MEDS ORDERED: AZITHROMYCIN 500 MG TABLET ONE (20:08)
[2020-07-26] MEDS ORDERED: LIDOCAINE-MPF 1%, 2ML ONE (20:08)
[2020-07-26] MEDS ORDERED: CEFTRIAXONE 250 MG IM ONE (20:30)
[2020-07-26] MEDS ORDERED: AZITHROMYCIN 500 MG TABLET PO ONE (20:30)
== END 2020-07-26 20:28 | disposition home or self-care (01) ==
LOC: ED 20:03
DX: N89.8 Other specified noninflammatory disorders of vagina (principal); R30.0 Dysuria; A64 Unspecified sexually transmitted disease; F17.210 Nicotine dependence, cigarettes, uncomplicated; Z72.9 Problem related to lifestyle, unspecified; Z90.89 Acquired absence of other organs
CPT/HCPCS: 81001; 81025; 87086; 96372; 99283; 99406; J0696

== ENCOUNTER 2021-04-23 02:24 | Emergency (ER) | payer BC ==
[~2021-04-23] VITALS: Ht 152.4 cm; Wt 53.1 kg
[~2021-04-23 02:24] MED LIST changes: -OXYC-302 PO; +OXYC1TAB14 PO
[2021-04-23 02:28] VITALS: BP 115/81
[2021-04-23] MEDS ORDERED: ONDANSETRON ODT 4 MG ONE (02:48)
--- NOTE | 2021-04-23 02:54 | NUR ---
Break RN: patient presents to ER c/o right side flank pain x1.5 days with nausea. Patient states she has a hx of kidney infections and this feels the same. Denies urinary symptoms. No vomiting. Patient is in NAD. Respirations even and unlabored.
[2021-04-23] MEDS ORDERED: ONDANSETRON ODT 4 MG PO ONE (03:00)
[2021-04-23 03:06] LABS: HCG UR SG 1.022 (1.003-1.030); MICROSCOPIC AUTO
[2021-04-23] MEDS ORDERED: CEFDINIR 300 MG CAPSULE PO ONE (04:00)
[2021-04-23] MEDS ORDERED: CEFDINIR 300 MG CAPSULE ONE (04:10)
--- NOTE | 2021-04-23 04:19 | NUR ---
Discharge instructions given. All questions and concerns addressed. Patient ambulatory with a steady gait. Belongings with patient.
== END 2021-04-23 04:20 | disposition home or self-care (01) ==
LOC: ED 04:18
DX: N10 Acute pyelonephritis (principal); F17.210 Nicotine dependence, cigarettes, uncomplicated; Z90.89 Acquired absence of other organs
CPT/HCPCS: 81001; 81025; 87077; 87086; 87186; 99283; 99406; Q0162

== ENCOUNTER 2021-05-25 22:56 | Emergency (ER) | payer BC ==
[~2021-05-25] VITALS: Ht 152.4 cm; Wt 51.0 kg
[2021-05-25 23:03] VITALS: BP 101/73
--- NOTE | 2021-05-26 01:47 | NUR ---
rn relief charge note: No answer from lobby when pt called for room.
--- NOTE | 2021-05-26 02:11 | NUR ---
gas charger note: No answer from lobby when pt called for room.
--- NOTE | 2021-05-26 02:22 | NUR ---
transmitter engineer in charge note: No answer from lobby when pt called for room.
== END 2021-05-26 02:23 | disposition left against medical advice (07) ==
LOC: ED 23:50
DX: B34.9 Viral infection, unspecified (principal); R10.9 Unspecified abdominal pain; R07.9 Chest pain, unspecified; R19.7 Diarrhea, unspecified; R06.00 Dyspnea, unspecified
CPT/HCPCS: 99281